=== PATIENT | female | born 1960 | race Caucasian/White ===

== ENCOUNTER 2017-06-20 09:20 | Emergency (ER) | payer OTHER ==
[~2017-06-20] VITALS: Ht 162.6 cm; Wt 65.3 kg
[2017-06-20] MEDS ORDERED: ZESTORETIC 20-121 EA PO (09:59)
[2017-06-20 10:07] LABS: BASOPHILS ABSOLUTE AUTO 0.05 K/mm3 (0.00-0.23); BASOPHILS PERCENT AUTO 1 % (0-2); EOSINOPHILS ABSOLUTE AUTO 0.36 K/mm3 (0.00-0.68); EOSINOPHILS PERCENT AUTO 4 % (0-6); Hematocrit 43.5 % (33.0-51.0); IMMATURE GRAN ABSOLUTE AUTO 0.04 K/mm3 (0.00-0.10); IMMATURE GRAN PERCENT AUTO 0 % (0-1); LYMPHOCYTES ABSOLUTE AUTO 1.76 K/mm3 (0.84-5.20); LYMPHOCYTES PERCENT AUTO 18 % (21-46); MONOCYTES PERCENT AUTO 4 % (4-13); Mean Corpuscular HGB 31.3 pg (26.0-34.0); Mean Corpuscular HGB Conc 32.2 g/dL (31.5-36.5); Mean Corpuscular Volume 97 fL (80-100); Mean Platelet Volume 9.6 fL (9.1-12.4); NEUTROPHILS ABSOLUTE AUTO 7.28 K/mm3 (1.96-9.15); NEUTROPHILS PERCENT AUTO 74 % (41-73); Platelet Count 280 K/mm3 (150-400); RDW Standard Deviation 42.9 fL (35.1-46.3); Red Blood Cell Count 4.47 M/mm3 (3.80-5.20); White Blood Cell Count 9.89 K/mm3 (4.00-11.30)
[2017-06-20 10:11] LABS: Source, Urine Voided
[2017-06-20 10:20] LABS: Albumin, Blood 4.1 g/dL (3.4-5.0); Albumin/Globulin Ratio 1.1 (0.8-1.8); Bilirubin, Total 0.5 mg/dL (0.1-1.0); Bun/Creatinine Ratio 23.5 (12.0-20.0); Calcium, Blood 9.1 mg/dL (8.5-10.1); Creatinine, Blood 1.15 mg/dL (0.40-1.00); Globulin, Blood 3.9 g/dL (2.2-4.0); Potassium, Blood 3.8 mmol/L (3.5-5.5)
[2017-06-20 10:20] LABS: Bilirubin, Urine Neg (Neg); Blood, Urine Neg (Neg); Glucose Qualitative, Urine Neg (Neg); Ketones, Urine Neg (Neg); Leukocyte Esterase, Urine 1+ (Neg); Nitrite, Urine Neg (Neg); Protein, Urine Neg (Neg); Urobilinogen, Urine NORM (Normal)
[2017-06-20 10:34] LABS: Appearance, Urine Clear (Clear); Color, Urine Yellow (P-Yellow)
[2017-06-20 10:36] LABS: Bacteria Not Seen /hpf; Red Blood Cells, Urine Not Seen /hpf (0-2); Squamous Epithelial Cells Few /hpf (Few); White Blood Cells, Urine 0-2 /hpf (0-5)
[2017-06-20] MEDS ORDERED: IBUP600 PO (10:49)
[2017-06-20] MEDS ORDERED: Zofran Odt4 MG SL (11:31)
[2017-06-20] MEDS ORDERED: Percocet 5-3251 EACH PO (11:31)
== END 2017-06-20 11:49 | disposition home or self-care (01) ==
LOC: ER 09:20
PROVIDERS: Emergency Medicine
DX: N13.2 Hydronephrosis with renal and ureteral calculous obstruction (principal); I10 Essential (primary) hypertension; R79.89 Other specified abnormal findings of blood chemistry; Z88.6 Allergy status to analgesic agent; Z79.899 Other long term (current) drug therapy
CPT/HCPCS: 36415; 74176; 80053; 81001; 85025; 96374; 96375; 99284; J1170; J1885; J2405

== ENCOUNTER → 2017-07-06 | Outpatient (CLI) | payer OTHER ==
[~2017-07-06] MED LIST: IBUP600 PO; Percocet 5-3251 EACH PO; ZESTORETIC 20-121 EA PO; Zofran Odt4 MG SL
[2017-07-07 03:29] LABS: Source ENDOCER/CERV
== END | disposition home or self-care (01) ==
LOC: LAB 11:45 → LAB SHORT 11:45
PROVIDERS: Nurse Practitioner
DX: Z01.419 Encounter for gynecological examination (general) (routine) without abnormal findings (principal)
CPT/HCPCS: G0145

== ENCOUNTER → 2020-04-08 | Outpatient (CLI) | payer OTHER | LOC: LAB 16:52 → LAB SHORT 16:52 | DX: Z20.828 Contact with and (suspected) exposure to other viral communicable diseases (principal) | CPT/HCPCS: U0003 ==

== ENCOUNTER → 2022-05-30 | Outpatient (CLI) | payer OTHER ==
[~2022-05-30] MED LIST changes: +LISI20 PO
[2022-05-30 14:38] LABS: Candida species (DNA Probe) Negative (NEGATIVE); G. vaginalis (DNA Probe) Negative (NEGATIVE); T. vaginalis (DNA Probe) Negative (NEGATIVE)
[2022-06-02 00:07] LABS: CHLAMYDIA TRACHOMATIS, NAA Negative (Negative)
== END | disposition home or self-care (01) ==
LOC: LAB SHORT 11:45 → LAB 11:45
PROVIDERS: Obstetrics & Gynecology
DX: N89.8 Other specified noninflammatory disorders of vagina (principal)
CPT/HCPCS: 87480; 87491; 87510; 87591; 87660

== ENCOUNTER → 2023-06-28 | Outpatient (CLI) | payer OTHER ==
[2023-07-04 14:25] LABS: CALCIUM, URINE - PER 24H 131 mg/d (100-250); CALCIUM, URINE - PER VOLUME 8.2 mg/dL; CHLORIDE, URINE - PER 24H 130 mmol/d (140-250); CHLORIDE, URINE - PER VOLUME 81 mmol/L; CITRIC ACID, URINE - PER 24H 171 mg/d (320-1240); CITRIC ACID,URINE - PER VOLUME 107 mg/L; CREATININE, URINE - PER 24H 992 mg/d (500-1400); CREATININE, URINE - PER VOLUME 62 mg/dL; HOURS COLLECTED 24 hr; MAGNESIUM, URINE PER 24H 112 mg/d (12-199); OXALATE, URINE - PER 24H 27 mg/d (13-40); OXALATE, URINE - PER VOLUME 17 mg/L; PH, URINE 5.57 (5.00-7.50); PHOSPHORUS, URINE - PER 24H 672 mg/d (400-1300); PHOSPHORUS, URINE - PER VOLUME 42 mg/dL; POTASSIUM, URINE - PER 24H 40 mmol/d (25-125); POTASSIUM, URINE - PER VOLUME 25 mmol/L; SODIUM, URINE - PER 24H 133 mmol/d (51-286); SODIUM, URINE - PER VOLUME 83 mmol/L; SULFATE, URINE - PER 24H 13 mmol/d (6-30); SULFATE, URINE - PER VOLUME 8 mmol/L; TOTAL VOLUME 1600 mL; URIC ACID, URINE - PER 24H 414 mg/d (250-750); URIC ACID, URINE - PER VOLUME 25.9 mg/dL; URINE SUPERSATURATION INTERP Normal; URINE SUPERSATURATION, CAHPO4 0.55; URINE SUPERSATURATION, UA CALC 0.84
== END ==
LOC: LAB SHORT 07:54 → LAB 07:54
PROVIDERS: Urology
DX: N20.0 Calculus of kidney (principal)
CPT/HCPCS: 81003; 82131; 82140; 82340; 82436; 82507; 82570; 83735; 83935; 83945; 84105; 84133; 84300; 84392; 84560